=== PATIENT | male | born 1965 | race Caucasian/White ===

== ENCOUNTER 2018-06-18 12:09 | Emergency (ER) | payer OTHER ==
[2018-06-18] MEDS: NAPROXEN 500 MG TAB PO (13:50)
== END 2018-06-18 15:46 | disposition home or self-care (01) ==
LOC: FTE 12:09
DX: S70.11XA Contusion of right thigh, initial encounter (principal); F17.210 Nicotine dependence, cigarettes, uncomplicated; V14.4XXA Pedal cycle driver injured in collision with heavy transport vehicle or bus in traffic accident, initial encounter
CPT/HCPCS: 76536; 99284-25

== ENCOUNTER 2018-11-05 23:00 | Emergency (ER) | payer OTHER ==
[2018-11-06] MEDS: LIDOCAINE 2% (MDV) 20 ML INJ INJ (00:43)
== END 2018-11-06 00:44 | disposition home or self-care (01) ==
LOC: FTE 11-06 00:44
DX: S61.210A Laceration without foreign body of right index finger without damage to nail, initial encounter (principal); W26.0XXA Contact with knife, initial encounter; Y92.9 Unspecified place or not applicable; Z87.891 Personal history of nicotine dependence
CPT/HCPCS: 12002; 99282-25

== ENCOUNTER 2018-12-10 08:48 | Emergency (ER) | payer OTHER ==
[2018-12-10 09:26] LABS: ADD MAN DIFF? NO
[2018-12-10 09:28] LABS: BASOPHILS % 0.8 % (0.0-2.0); EOSINOPHILS # 0.2 10^3/ul (0.0-0.5); EOSINOPHILS % 2.8 % (0.0-7.0); HEMATOCRIT 41.5 % (42.0-52.0); HEMOGLOBIN 14.1 g/dl (14.0-18.0); LYMPHOCYTES # 1.2 10^3/ul (0.8-2.9); LYMPHOCYTES % 22.5 % (15.0-51.0); MEAN CORPUSCULAR HEMOGLOBIN 28.2 pg (29.0-33.0); MEAN PLATELET VOLUME 8.8 fl (7.4-10.4); MONOCYTE # 0.4 10^3/ul (0.3-0.9); MONOCYTES % 7.5 % (0.0-11.0); NEUTROPHIL # 3.5 10^3/ul (1.6-7.5); PLATELET COUNT 292 10^3/UL (140-415); RED CELL DISTRIBUTION WIDTH 12.3 % (11.5-14.5)
[2018-12-10 09:28] LABS: WHITE BLOOD COUNT 5.3 10^3/ul (4.8-10.8)
[2018-12-10] MEDS: DIPHTH/TET/ACEL PERTUSS (ADULT) 0.5 ML VIAL IM* (09:30)
[2018-12-10 09:50] LABS: ANION GAP 8 (5-13); BLOOD UREA NITROGEN 14 mg/dl (7-20); CALCIUM 9.6 mg/dl (8.4-10.2); CARBON DIOXIDE 27 mmol/L (21-31); CHLORIDE 106 mmol/L (97-110); CREATININE 0.85 mg/dl (0.61-1.24); Estimated GFR > 60 mL/min (>60); GLUCOSE 111 mg/dl (70-220); POTASSIUM 3.9 mmol/L (3.5-5.1); SODIUM 141 mmol/L (135-144)
[2018-12-10] MEDS: SOD CHLORIDE 0.9% 1,000 ML IV (09:57)
[2018-12-10] MEDS: morphine 4 MG/ML VIAL IV (09:57)
[2018-12-10] MEDS: KETOROLAC 15 MG INJ IV (09:57)
[2018-12-10] MEDS: ONDANSETRON 4 MG INJ IV (09:57)
[2018-12-10] MEDS: MUPIROCIN 2% 22 GM OINT TOP (10:04)
[2018-12-10 16:36] LABS: INR 0.89; PARTIAL THROMBOPLASTIN TIME 25.1 Sec (23.0-35.0); PROTIME 12.2 Sec (11.9-14.9)
== END 2018-12-10 10:45 | disposition home or self-care (01) ==
LOC: E/R 08:48
DX: S43.101A Unspecified dislocation of right acromioclavicular joint, initial encounter (principal); S43.491A Other sprain of right shoulder joint, initial encounter; F17.210 Nicotine dependence, cigarettes, uncomplicated; R40.2142 Coma scale, eyes open, spontaneous, at arrival to emergency department; R40.2252 Coma scale, best verbal response, oriented, at arrival to emergency department; R40.2362 Coma scale, best motor response, obeys commands, at arrival to emergency department; R07.9 Chest pain, unspecified; R93.0 Abnormal findings on diagnostic imaging of skull and head, not elsewhere classified; V00.131A Fall from skateboard, initial encounter; Y92.9 Unspecified place or not applicable
CPT/HCPCS: 29105; 36415; 70450; 71045; 73030-RT; 80048; 85025; 85610; 85730; 96374; 96375; 99285-25